=== PATIENT | female | born 1995 | race Caucasian/White ===

== ENCOUNTER 2017-10-21 17:49 | Emergency (ER) | payer OTHER ==
[~2017-10-21] VITALS: Ht 167.6 cm; Wt 88.5 kg
[~2017-10-21 17:49] MED LIST: CITRANATAL B-C1 EAC1; PANADOL EXTRA500 MG
== END 2017-10-21 20:38 | disposition home or self-care (01) ==
LOC: ER 17:49
DX: M24.411 Recurrent dislocation, right shoulder (principal)